=== PATIENT | female | born 1990 | race Caucasian/White ===

== ENCOUNTER 2019-10-01 09:42 | Emergency (ER) | payer BC ==
[~2019-10-01] VITALS: Ht 157.5 cm; Wt 63.5 kg
[2019-10-01 09:43] VITALS: BP 104/72
--- NOTE | 2019-10-01 09:51 | NUR ---
PT AMBULATED TO ER BED 04
--- NOTE | 2019-10-01 09:56 | NUR ---
29 YO FEMALE CO LEFT TOE PAIN SINCE YESTERDAY. PT STATES THAT SHE DROPPED A METAL PLATE ON HER LEFT FOOT. BRUSING AND SWELLING NOTED WITH NO OPEN SKIN. PAIN IS 8/10. PT IS UNABLE TO MOVE TOE.
--- NOTE | 2019-10-01 10:15 | NUR ---
APPLIED LEYLA TAPE AND ORTHO SHOE FOR LEFT FOOT
[2019-10-01 10:26] VITALS: BP 104/72
== END 2019-10-01 10:27 | disposition home or self-care (01) ==
LOC: MED 09:42
DX: S90.112A Contusion of left great toe without damage to nail, initial encounter (principal); X50.9XXA Other and unspecified overexertion or strenuous movements or postures, initial encounter; Y93.89 Activity, other specified; Y92.89 Other specified places as the place of occurrence of the external cause; Y99.8 Other external cause status
CPT/HCPCS: 73660; 99283; Q0092